=== PATIENT | female | born 1975 | race Caucasian/White ===

== ENCOUNTER 2022-05-29 08:44 | Outpatient (REF) | payer OTHER, SELFPAY ==
[2022-05-29 09:50] LABS: Erythrocyte Sedimentation Rate 2 MM/HR (0-20)
[2022-05-29 10:54] LABS: Vitamin B12 254 pg/mL (200-900)
[2022-05-30 21:21] LABS: Lyme Abs Screen <0.90 index
[2022-06-03 17:22] LABS: Anti Nuclear Antibody Pattern Nuclear, Homogeneous; Anti Nuclear Antibody Screen POSITIVE (NEGATIVE); Anti Nuclear Antibody Titer 1:40 titer
== END 2022-05-29 08:45 | disposition home or self-care (01) ==
LOC: HO.LAB 08:44
PROVIDERS: PCP Internal Medicine; Visit Provider Psychiatry & Neurology Neurology
DX: F41.9 Anxiety disorder, unspecified (principal)
CPT/HCPCS: 36415; 82607; 85652; 86038; 86039; 86617; 86618